=== PATIENT | female | born 1975 | race American Indian/Alaskan Native ===

== ENCOUNTER 2016-10-18 16:04 | Emergency (ER) | payer MEDICAID ==
[2016-10-18 16:17] VITALS: BP 140/76
[2016-10-18] MEDS ORDERED: Lidocaine 2% Viscous Solution 15 ML Cup PO ONE (16:30)
--- NOTE | 2016-10-18 16:39 | EDM.PDOC ---
ED HPI GENERAL MEDICAL PROBLEM - General Chief Complaint: ENT Problem Stated Complaint: JAW PAIN Time Seen by Provider: 10/18/16 16:32 Source of Information: Reports: Patient History Limitations: Reports: No Limitations - History of Present Illness INITIAL COMMENTS - FREE TEXT/NARRATIVE: This 40 yo female patient reports to the ED with right lower jaw pain that started in August. The patient reports she had a tooth extracted in August, but has been experiencing increased pain since the procedure. The patient has not been able to see the dental provider that did the [place] The patient reports no other dentist will see her and her primary care provider advised her to come to the ED. Onset: Gradual Duration: Week(s): (Started in August) Location: Reports: Face (right lower) Quality: Reports: Ache, Dull Severity: Moderate Improves with: Reports: None Worsens with: Reports: None Context: Reports: Other (dental procedure in august ) Associated Symptoms: Reports: No Other Symptoms Treatments [facility] [facility]: Reports: Acetaminophen, NSAIDS Right Gums Pain Score (Numeric/FACES): 7 - Related Data Allergies Allergy/AdvReac Type Severity Reaction Status Date / Time morphine Allergy Hives Verified 10/18/16 16:10 vancomycin Allergy Hives Verified 10/18/16 16:10 Home Meds: Home Meds Multivitamin [Multi-Day Vitamins] 20 mg PO DAILY 12/06/15 [History] Pantoprazole Sodium [Protonix] 1 cap PO DAILY 12/06/15 [History] Past Medical History - Past Health History Medical/Surgical History: Denies Medical/Surgical History Gastrointestinal History: Reports: GERD Musculoskeletal History: Reports: Osteoarthritis Endocrine/Metabolic History: Reports: Diabetes, Type II, Obesity/BMI 30+ - Past Surgical History Female Surgical History: Reports: D&C Musculoskeletal Surgical History: Reports: Other (See Below) Other Musculoskeletal Surgeries/Procedures:: feet surgery Social & Family History - Family History Family Medical History: Noncontributory - Tobacco Use Smoking Status *Q: Never Smoker - Caffeine Use Caffeine Use: Reports: Coffee, Soda - Recreational Drug Use Recreational Drug Use: No - Living Situation & Occupation Living situation: Reports: with Family Occupation: Employed ED ROS ENT - Review of Systems Review Of Systems: ROS reveals no pertinent complaints other than HPI. ED EXAM, ENT - Physical Exam Exam: See Below Exam Limited By: No Limitations General Appearance: Alert, WD/WN, Moderate Distress, Obese Eye Exam: Bilateral Eye: EOMI, Normal Inspection, PERRL Ears: Normal External Exam, Normal Canal, Hearing Grossly Normal, Normal TMs Nose: Normal Inspection, Normal Mucousa, No Blood Mouth/Throat: Normal Inspection, Normal Lips, Normal Oropharynx, Dental Tenderness (right lower ) Head: Atraumatic, Normocephalic Neck: Normal Inspection, Supple, Non-Tender, Full Range of Motion Respiratory/Chest: No Respiratory Distress, Lungs Clear, Normal Breath Sounds, No Accessory Muscle Use, Chest Non-Tender Cardiovascular: Normal Peripheral Pulses, Regular Rate, Rhythm, No Edema, No Gallop, No JVD, No Murmur, No Rub GI/Abdominal: Other (obese) (Female) Exam: Deferred Rectal (Female) Exam: Deferred Neurological: Alert, Oriented, CN II-XII Intact, Normal Cognition, Normal Gait Psychiatric: Normal Affect, Normal Mood Skin: Warm, Dry, Intact, Normal Color, No Rash Lymphatic: No Adenopathy Course - Vital Signs Last Recorded V/S: Last Vital Signs Temp 36.9 C 10/18/16 16:16 Pulse 96 10/18/16 16:16 Resp 20 10/18/16 16:16 BP 140/76 10/18/16 16:16 Pulse Ox 100 10/18/16 16:16 - Orders/Labs/Meds Meds: Medications Discontinued Medications Generic Name Dose Route Start Last Admin Trade Name Robin PRN Reason Stop Dose Admin Lidocaine HCl 15 ml 10/18/16 16:30 Xylocaine 2% Viscous PO 10/18/16 16:31 ONETIME ONE Departure - Departure Time of Disposition: 16:33 Disposition: Home, Self-Care 01 Condition: Fair Clinical Impression: Dental abscess - Discharge Information Instructions: Dental Abscess, [id number] Forms: ED Department Discharge Care Plan Goals: The patient was advised of the examination results during the visit. The patient was given a dose of Viscous Lidocaine 2 % while in the ED. The patient was discharged with a script for Clindamycin (300 mg) to take 1 by mouth 3 times per day for 10 days and Viscous Lidocaine 2% #100 mL to use 5-10 mL applied to a cotton swab to the affected area 3 times per day as needed. The patient should follow-up with her dental provider for continued evaluation and further management.
== END 2016-10-18 16:41 | disposition home or self-care (01) ==
LOC: DL.ED 16:04
DX: K04.7 Periapical abscess without sinus (principal); E11.9 Type 2 diabetes mellitus without complications; K21.9 Gastro-esophageal reflux disease without esophagitis; E66.9 Obesity, unspecified; Z98.890 Other specified postprocedural states; Z88.5 Allergy status to narcotic agent
CPT/HCPCS: 99283; A9270